=== PATIENT | male | born 1955 | race Caucasian/White ===

== ENCOUNTER 2020-11-13 13:32 | Emergency (ER) | payer MEDICARE ==
[~2020-11-13] VITALS: Ht 182.9 cm; Wt 102.1 kg
[~2020-11-13 13:32] MED LIST: GADOTERATE 10 MMOL/20 ML VIAL ONE
--- NOTE | 2020-11-13 14:53 | NUR ---
pt to MRI
--- NOTE | 2020-11-13 14:54 | NUR ---
Report from JOCELYN Corey. Assumed care. Pt at MRI.
[2020-11-13] MEDS ORDERED: MORPHINE SULFATE 4 MG/ML, 1ML ONE (15:22)
[2020-11-13] MEDS ORDERED: OXYcodone/APAP 5/325MG TABLET ONE (15:22)
[2020-11-13] MEDS ORDERED: OXYcodone/APAP 5/325MG TABLET PO ONE (15:30)
[2020-11-13] MEDS ORDERED: MORPHINE SULFATE 4 MG/ML, 1ML IVPush ONE (15:30)
--- NOTE | 2020-11-13 15:40 | NUR ---
MRI called and reported pt is unable to tolerate procedure d/t back pain- Informed Dr. Keene. Percocet ordered. This RN to MRI, administered percocet per [facility].
--- NOTE | 2020-11-13 16:44 | NUR ---
Pt back from MRI
--- NOTE | 2020-11-13 16:45 | NUR ---
Morphine was not given- Percocet was given instead.
[2020-11-13 17:09] LABS: HCT (SEDRATE) 43.5 % (39.2-51.8)
[2020-11-13 17:11] LABS: BASOPHILS % (AUTO) 1 % (0-1); EOSINOPHILS % (AUTO) 2 % (1-7); LYMPHOCYTES % (AUTO) 40 % (22-44); MEAN CORPUSCULAR HEMOGLOBIN 30.8 pg (27.5-34.5); MEAN CORPUSCULAR HGB CONC 34.6 g/dL (33.2-36.2); MEAN PLATELET VOLUME 8.4 fL (7.4-10.4); MONOCYTES % (AUTO) 9 % (2-9); NEUTROPHILS % (AUTO) 49 % (42-75); PLATELET COUNT 199 x10^3/uL (130-400); RED BLOOD COUNT 4.82 x10^6/uL (4.38-5.82); RED CELL DISTRIBUTION WIDTH 13.3 % (9.4-14.8)
[2020-11-13 17:12] LABS: MD NO
[2020-11-13 17:22] LABS: ALBUMIN 3.7 g/dL (3.4-5.0); ANION GAP 7 mmol/L (5-15); CALCIUM 8.9 mg/dL (8.5-10.1); CHLORIDE 107 mmol/L (98-107)
[2020-11-13 17:50] LABS: ALANINE AMINOTRANSFERASE 21 U/L (12-78); ALKALINE PHOSPHATASE 61 U/L (45-117); BILIRUBIN,TOTAL 0.9 mg/dL (0.2-1.0); C-REACTIVE PROTEIN, QUANT 0.21 mg/dL (0.02-0.49); CREATININE 0.85 mg/dL (0.7-1.3); FREE T4 (FREE THYROXINE) 1.13 ng/dL (0.76-1.46); T4 (THYROXINE) 9.5 mcg/dL (4.5-12.1); TOTAL PROTEIN 7.7 g/dL (6.4-8.2)
[2020-11-13 18:10] VITALS: BP 111/70
--- NOTE | 2020-11-13 18:10 | NUR ---
Pt's neurologist is who recommended pt come to ED today and requested MRI and labs- Dr. Keene aware of this and in communication with neurologist. Pt and pt's , who is a nurse, understand and agree with discharge plan and instructions.
--- NOTE | 2020-11-13 18:10 | NUR ---
IV removed, catheter intact, hemostasis achieved, dressing applied.
[2020-11-14 15:05] LABS: ANA SCREEN NEGATIVE (Negative)
[2020-11-27] MEDS ORDERED: GADOTERATE 10 MMOL/20 ML VIAL ONE (13:18)
== END 2020-11-13 18:29 | disposition home or self-care (01) ==
LOC: ED 18:00
DX: H53.462 Homonymous bilateral field defects, left side (principal); H54.7 Unspecified visual loss; E11.9 Type 2 diabetes mellitus without complications
CPT/HCPCS: 36415; 70553; 80053; 82140; 82164; 82607; 82746; 83090; 84436; 84439; 84443; 85025; 85549; 85651; 86038; 86140; 86147; 86480; 86592; 86780; 99285; A9575; 99284